=== PATIENT | female | born 1980 | race Hispanic/Latino ===

== ENCOUNTER 2024-02-04 02:21 | Emergency (ER) | payer OTHER ==
--- NOTE | 2024-02-04 03:07 | EDPHYS ---
Physician Documentation [facility] Name: Loulou Galan Age: 43 yrs Sex: Female : 1980 Arrival Date: 02/04/2024 Time: 02:21 Bed IW1 Private MD: ED Physician Yoav Lozada HPI: 02/03 02:33 This 43 yrs old Female presents to ER via Unassigned with complaints of Ear sp4 Pain. 21:22 43-year-old female presents with complaint of the bilateral ear pain. Patient sp4 states she was diagnosed with swimmer's ear's 2 days ago bilaterally was prescribed ofloxacin otic drops . Patient states those are not working well. . Historical: - Allergies: 02:49 No Known Allergies; jb4 - PMHx: 02:49 None; jb4 - PSHx: 02:49 None; jb4 - Immunization history:: Adult Immunizations up to date. - Infectious Disease History:: Denies. - Social history:: Smoking status: Patient denies any tobacco usage or history of. - Family history:: not pertinent. ROS: 21:22 Constitutional: Negative for fever, chills, and weight loss, ENT: Bilateral ear pain sp4 and bilateral ear drainage 21:22 All other systems are negative, Exam: 21:22 Constitutional: This is a well developed, well nourished patient who is awake, alert, sp4 and in no acute distress. Head/Face: Normocephalic, atraumatic. Eyes: Pupils equal round and reactive to light, extra-ocular motions intact. Lids and lashes normal. Conjunctiva and sclera are not injected. Cornea within normal limits. Periorbital areas with no swelling, redness, or edema. ENT: Nares patent. No nasal discharge, no septal abnormalities noted. Tympanic membranes are normal and external auditory canals are clear. Oropharynx with no redness, swelling, or masses, exudates, or evidence of obstruction, uvula midline. Mucous membranes moist. Neck: Trachea midline, no thyromegaly or masses palpated, and no cervical lymphadenopathy. Supple, full range of motion without nuchal rigidity, or vertebral point tenderness. Chest/axilla: Normal chest wall appearance and motion. Nontender with no deformity. No lesions are appreciated. Cardiovascular: Regular rate and rhythm with a normal S1 and S2. No gallops, murmurs, or rubs. Normal PMI, no JVD. No pulse deficits. Respiratory: Lungs have equal breath sounds bilaterally, clear to auscultation and percussion. No rales, rhonchi or wheezes noted. No increased work of breathing, no retractions or nasal flaring. Abdomen/GI: Soft, with normal bowel sounds. No distension or tympany. No guarding or rebound. No evidence of tenderness throughout. Back: No spinal tenderness. No costovertebral tenderness. Skin: Warm, dry with normal turgor. Normal color with no rashes, no lesions, and no evidence of cellulitis. MS/ Extremity: Pulses equal, no cyanosis. Neurovascular intact. Full, normal range of motion. Neuro: Awake and alert, GCS 15, oriented to person, place, time, and situation. Cranial nerves II-XII grossly intact. Motor strength 5/5 in all extremities. Sensory grossly intact. Psych: Awake, alert, with orientation to person, place and time. Behavior, mood, and affect are within normal limits 21:22 ENT: Nares patent. No nasal discharge, no septal abnormalities noted. Oropharynx with no redness, swelling, or masses, exudates, or evidence of obstruction, uvula midline. Mucous membranes moist. Positive bilateral ear canal swelling inflammation and purulent discharge consistent with bilateral swimmer's ear Vital Signs: 02:46 BP 127 / 94; Pulse 105; Resp 16; Temp 98.7(TE); Pulse Ox 98% on R/A; Weight 90.72 kg jb4 (R); Height 5 ft. 5 in. (R); Pain 9/10; 02:46 Body Mass Index 33.28 (90.72 kg, 165.1 cm) jb4 02:46 Pain Scale: Adult jb4 [place] Coma Score: 21:22 Eye Response: spontaneous(4). Motor Response: obeys commands(6). Verbal Response: sp4 oriented(5). Total: 15. MDM: 02:47 Patient medically screened. sp4 21:25 Differential diagnosis: otitis media, otitis externa, foreign body, acute otalgia. Data sp4 reviewed: vital signs, nurses notes, old medical records. ED course: Patient was covered with Rocephin IM will prescribe cephalexin twice a day for 10 days also substitute ofloxacin for Ciprodex.. . Administered Medications: 03:37 Drug: Acetaminophen PO 650 mg PO once Route: PO; jb4 03:56 Follow up: Response: No adverse reaction; Marked relief of symptoms jb4 03:38 Drug: [place] PO 10 mg-325 mg 1 tabs PO once Route: PO; jb4 03:56 Follow up: Response: No adverse reaction; Marked relief of symptoms jb4 03:38 Drug: Rocephin (cefTRIAXone) IM 1 grams IM once Route: IM; Site: right gluteus; jb4 03:56 Follow up: Response: No adverse reaction jb4 Disposition: 22:23 Chart complete. sp4 Disposition Summary: 02/04/24 03:07 Discharge Ordered Notes: Location: Home sp4 Problem: new sp4 Symptoms: have improved sp4 Condition: Stable sp4 Diagnosis - Diffuse otitis externa, left ear sp4 - Diffuse otitis externa, right ear sp4 Followup: sp4 - With: Bianca Colby MD - When: 2 - 3 days - Reason: Recheck today's complaints Discharge Instructions: - Discharge Summary Sheet sp4 - Otitis Externa, [id number] sp4 Forms: - Family Work Release jb4 - Prescription Opioid Use sp4 Prescriptions: - acetaminophen-codeine 300-60 mg Oral tablet - take 1 tablet ORAL route every 6 hours PRN pain; 15 tablet; Refills: 0, Product sp4 Selection Permitted - Cephalexin 500 mg Oral Capsule - take 1 capsule ORAL route every 12 hours for 10 days; 20 capsule; Refills: 0, sp4 Product Selection Permitted - Ibuprofen 800 mg Oral Tablet - take 1 tablet ORAL route every 8 hours As needed take with food; 30 tablet; sp4 Refills: 0, Product Selection Permitted - Ciprodex 0.3-0.1 % Otic drops, suspension - instill 4 drops OTIC route every 12 hours for 7 days for 7 days; 7.5 sp4 milliliter; Refills: 0, Product Selection Permitted Signatures: Castillo Abbott RN RN jb4 Yoav Lozada MD MD sp4
--- NOTE | 2024-02-04 03:07 | ER ---
Nurse's Notes [facility] Name: Loulou Galan Age: 43 yrs Sex: Female : 1980 Arrival Date: 02/04/2024 Time: 02:21 Bed IW1 Private MD: Diagnosis: Diffuse otitis externa, left ear;Diffuse otitis externa, right ear Presentation: 02/03 02:46 Chief complaint: Patient states: I was diagnosed with swimmers ear in both ears. I was jb4 given Ofloxacin otic solution that I just started today. I was given 4 200mg tablets of Motrin that I took at midnight. The pain has not gotten better. Coronavirus screen: At this time, the client does not indicate any symptoms associated with coronavirus-19. Ebola Screen: No symptoms or risks identified at this time. Initial Sepsis Screen: Does the patient meet any 2 criteria? No. Patient's initial sepsis screen is negative. Does the patient have a suspected source of infection? No. Patient's initial sepsis screen is negative. Risk Assessment: Do you want to hurt yourself or someone else? Patient reports no desire to harm self or others. Onset of symptoms was February 04, 2024. Transition of care: patient was not received from another setting of care. 02:46 Method Of Arrival: Ambulatory jb4 02:46 Acuity: SHANNAN 4 jb4 Historical: - Allergies: 02:49 No Known Allergies; jb4 - PMHx: 02:49 None; jb4 - PSHx: 02:49 None; jb4 - Immunization history:: Adult Immunizations up to date. - Infectious Disease History:: Denies. - Social history:: Smoking status: Patient denies any tobacco usage or history of. - Family history:: not pertinent. Screenin:39 [facility] ED Fall Risk Assessment (Adult) History of falling in the last 3 months, jb4 including since admission No falls in past 3 months (0 pts) Confusion or Disorientation No (0 pts) Intoxicated or Sedated No (0 pts) Impaired Gait No (0 pts) Mobility Assist Device Used No (0 pt) Altered Elimination No (0 pt) Score/Fall Risk Level 0 - 2 = Low Risk Oriented to surroundings, Maintained a safe environment. Abuse screen: Denies threats or abuse. Nutritional screening: No deficits noted. Tuberculosis screening: No symptoms or risk factors identified. Assessment: 03:00 General: Appears in no apparent distress. uncomfortable, Behavior is calm, cooperative, jb4 appropriate for age. Pain: Complains of pain in right ear and left ear Pain does not radiate. Pain currently is 9 out of 10 on a pain scale. Neuro: Level of Consciousness is awake, alert, obeys commands, Oriented to person, place, time, situation. Cardiovascular: Patient's skin is warm and dry. Respiratory: Airway is patent Respiratory effort is even, unlabored, Respiratory pattern is regular, symmetrical. GI: No signs and/or symptoms were reported involving the gastrointestinal system. : No signs and/or symptoms were reported regarding the genitourinary system. EENT: Ear canal w/ drainage noted from left ear and right ear. Derm: Skin is intact, Skin is pink, warm \T\ dry. Musculoskeletal: Circulation, motion, and sensation intact. Range of motion: intact in all extremities. Vital Signs: 02:46 BP 127 / 94; Pulse 105; Resp 16; Temp 98.7(TE); Pulse Ox 98% on R/A; Weight 90.72 kg jb4 (R); Height 5 ft. 5 in. (R); Pain 9/10; 02:46 Body Mass Index 33.28 (90.72 kg, 165.1 cm) jb4 02:46 Pain Scale: Adult jb4 [place] Coma Score: 21:22 Eye Response: spontaneous(4). Motor Response: obeys commands(6). Verbal Response: sp4 oriented(5). Total: 15. ED Course: 02:24 Patient arrived in ED. jj6 02:33 Yoav Lozada MD is Attending Physician. sp4 02:49 Triage completed. jb4 02:49 Arm band placed on right wrist. jb4 03:06 Bianca Colby MD is Referral Physician. sp4 03:39 Patient has correct armband on for positive identification. Bed in low position. Call jb4 light in reach. Side rails up X 1. Provided Education on: plan of care. 03:39 No provider procedures requiring assistance completed. Patient did not have IV access jb4 during this emergency room visit. Administered Medications: 03:37 Drug: Acetaminophen PO 650 mg PO once Route: PO; jb4 03:56 Follow up: Response: No adverse reaction; Marked relief of symptoms jb4 03:38 Drug: [place] PO 10 mg-325 mg 1 tabs PO once Route: PO; jb4 03:56 Follow up: Response: No adverse reaction; Marked relief of symptoms jb4 03:38 Drug: Rocephin (cefTRIAXone) IM 1 grams IM once Route: IM; Site: right gluteus; jb4 03:56 Follow up: Response: No adverse reaction jb4 Outcome: 03:07 Discharge ordered by . sp4 03:56 Patient left the ED. jb4 Signatures: Castillo Abbott RN RN jb4 Renée Braswell jj6 Yoav Lozada MD MD sp4
[2024-02-04] MEDS ORDERED: CEFTRIAXONE 1000 MG/VIAL ONE (03:25)
[2024-02-04] MEDS ORDERED: ACETAMINOPHEN 325 MG TABLET ONE (03:25)
[2024-02-04] MEDS ORDERED: HYDROCODONE/APAP 10/325 TAB ONE (03:26)
[2024-02-04] MEDS ORDERED: WATER FOR INJ,STERILE 10 ML ONE (03:26)
[2024-02-04 04:22] VITALS: BP 127/94; TEMP 98.7; O2SAT 98
== END 2024-02-04 03:56 | disposition home or self-care (01) ==
LOC: ER 02:21
DX: H60.313 Diffuse otitis externa, bilateral (principal)
CPT/HCPCS: 96372; 99284; J0696